=== PATIENT | male | born 1955 | race Caucasian/White ===

== ENCOUNTER 2021-03-31 04:46 | Observation (INO) ==
[2021-03-31] MEDS ORDERED: ONDANSETRON 4 MG/2 ML VIAL IV STA (05:01)
[2021-03-31] MEDS ORDERED: ASPIRIN EC 325 MG TABLET PO STA (05:01)
[2021-03-31] MEDS ORDERED: methylPREDNISolone SOD SUC 125 MG/2 ML VIAL IV STA (05:01)
[2021-03-31] MEDS ORDERED: MORPHINE 2 MG/1 ML SYRINGE IV STA (05:01)
[2021-03-31] MEDS ORDERED: ALBUTEROL/IPRATROPIUM 3 ML NEB RESP TX STA (05:01)
[2021-03-31] MEDS ORDERED: NITROGLYCERIN 2% OINT 1 INCH/GM PACK TOP STA (05:01)
[2021-03-31] MEDS ORDERED: MECLIZINE 25 MG TABLET PO STA (05:01)
[2021-03-31 05:23] LABS: Basophils # 0.1 10*3/uL (0.0-0.2); Basophils % 0.8 % (0.0-0.8); Eosinophils # 0.2 10*3/uL (0.0-0.87); Eosinophils % 3.1 % (0.00-10.9); Hematocrit 39.1 VOL% (42.0-52.0); Immature Granulocytes % 0.5 %; Immature Granulocytes Absolute 0.03 #; Lymphocytes # 0.7 10*3/uL (1.4-4.0); Lymphocytes % 10.2 % (21.2-54.2); Mean Corpuscular HGB Conc 30.7 GM/DL (32-36); Mean Corpuscular Volume 89.3 FL (87-102); Mean Platelet Volume 10.9 FL (9.6-12.0); Monocytes % 10.1 % (1.7-12.7); Neutrophils % 75.3 % (38.7-73.9); Platelet Count 213 T/CUMM (130-400); Red Blood Count 4.38 MC/CUMM (3.8-5.5); Red Cell Distribution Width 15.2 % (9.3-17.3); White Blood Count 6.4 T/CUMM (4-12)
[2021-03-31 05:38] LABS: Alanine Aminotransferase 19 U/L (16-61); Albumin 4.1 G/DL (3.4-5.0); Alkaline Phosphatase 113 U/L (45-117); Aspartate Amino Transferase 23 U/L (0-37); Bilirubin,Total < 0.39 MG/DL (0.20-1.00); Blood Urea Nitrogen 13 MG/DL (7-18); Calcium 9.4 MG/DL (8.5-10.1); Carbon Dioxide 34 MMOL/L (21-32); Estimated Glom Filtration Rate 79 ML/MIN; Glucose 118 MG/DL (74-106); Osmolality,Calculated 270.1 MOS/KG (273-304); Potassium 4.2 MMOL/L (3.5-5.1); Sodium 135 MMOL/L (136-145); Total Protein 7.7 G/DL (6.4-8.2)
[2021-03-31 05:43] LABS: PT Patient Result 10.9 SECS (10.5-12.0)
[2021-03-31] MEDS ORDERED: ENOXAPARIN 100 MG/ML SYRINGE SUBCUT STA (05:50)
[2021-03-31] MEDS ORDERED: ALBUTEROL NEB SOLN 5 MG/ML 20 ML/BOTTLE CONT NEB STA (05:51)
[2021-03-31] MEDS ORDERED: ALBUTEROL 2.5 MG/3 ML NEB RESP TX PRN (05:58)
[2021-03-31] MEDS ORDERED: DEXTROSE 50% 25 GM/50 ML VIAL IV PRN (06:01)
[2021-03-31] MEDS ORDERED: ENOXAPARIN 80 MG/0.8 ML SYRINGE SUBCUT ONE (06:01)
[2021-03-31] MEDS ORDERED: hydrALAZINE 20 MG/1 ML VIAL IV PRN (06:01)
[2021-03-31] MEDS ORDERED: DOCUSATE SODIUM 100 MG CAPSULE PO PRN (06:01)
[2021-03-31] MEDS ORDERED: ACETAMINOPHEN 325 MG TABLET PO PRN (06:01)
[2021-03-31] MEDS ORDERED: ONDANSETRON 4 MG/2 ML VIAL IV PRN (06:01)
[2021-03-31] MEDS ORDERED: GLUCAGON 1 MG VIAL IM PRN (06:01)
[2021-03-31] MEDS ORDERED: SODIUM CHLORIDE 0.9% 1,000 ML IV STA (06:10)
[2021-03-31] MEDS: methylPREDNISolone SOD SUC 40 MG/1 ML VIAL IV SCH ×3 (06:12→21:20)
[2021-03-31 06:14] LABS: Bilirubin,Urine Negative (Negative); Blood, Urine Negative (Negative); Glucose,Urine (UA) Negative (Negative); Ketones,Urine Negative (Negative); Mucus,Urine Occasional /LPF (Occasional); Nitrite,Urine Negative (Negative); Protein,Urine Negative; RBC,Urine 6 /HPF (0-4); Squamous Epithelial Cell,Urine Occasional /HPF (0-10); Urine Appearance CLEAR (Clear); Urine Color Yellow (Yellow); Urine Specific Gravity 1.012 (1.001-1.035); Urine Urobilinogen < 2.0 EU/DL (0.2-1.0)
[2021-03-31] MEDS ORDERED: MECLIZINE 25 MG TABLET PO PRN (06:20)
[2021-03-31 06:25] LABS: Benzodiazepines Screen,Urine Negative (Negative)
[2021-03-31 06:26] LABS: Barbiturates Screen,Urine Negative (Negative); Cannabinoid Screen,Urine Negative (Negative); Phencyclidine Screen,Urine Negative (Negative)
[2021-03-31] MEDS: ALBUTEROL/IPRATROPIUM 3 ML NEB RESP TX SCH ×2 (07:11→20:05)
[2021-03-31] MEDS ORDERED: AZITHROMYCIN INJ 500 MG in SODIUM CHLORIDE 0.9% 250 ML IV SCH (08:00)
[2021-03-31] MEDS ORDERED: INFLUENZA VIRUS VACCINE 0.5 ML SYRINGE IM ONE (08:54)
[2021-03-31] MEDS ORDERED: ENOXAPARIN 40 MG/0.4 ML SYRINGE SUBCUT SCH (09:00)
[2021-03-31] MEDS ORDERED: NICOTINE 21 MG/24 HR PATCH TRANSDERM PRN (10:15)
[2021-03-31] MEDS: BUDESONIDE/FORMOTEROL 80-4.5 INHALER 6.9 GM INH SCH ×2 (12:31→21:20)
[2021-04-01] MEDS: ALBUTEROL/IPRATROPIUM 3 ML NEB RESP TX SCH ×3 (01:05→07:51)
[2021-04-01] MEDS: methylPREDNISolone SOD SUC 40 MG/1 ML VIAL IV SCH (06:21)
[2021-04-01 07:40] VITALS: BP 111/58
[2021-04-01 07:51] LABS: Basophils % 0.2 % (0.0-0.8); Hemoglobin 10.2 GM/DL (14.0-18.0); Immature Granulocytes % 0.7 %; Immature Granulocytes Absolute 0.08 #; Lymphocytes # 0.6 10*3/uL (1.4-4.0); Lymphocytes % 4.7 % (21.2-54.2); Mean Corpuscular HGB Conc 30.9 GM/DL (32-36); Mean Corpuscular Volume 90.4 FL (87-102); Monocytes % 6.8 % (1.7-12.7); Neutrophils % 87.6 % (38.7-73.9); Platelet Count 189 T/CUMM (130-400); Red Blood Count 3.65 MC/CUMM (3.8-5.5); Red Cell Distribution Width 15.4 % (9.3-17.3); White Blood Count 11.9 T/CUMM (4-12)
[2021-04-01 08:04] LABS: Calcium 8.3 MG/DL (8.5-10.1); Potassium 4.4 MMOL/L (3.5-5.1)
[2021-04-01 08:10] LABS: Risk Ratio 4.79; VLDL Cholesterol 34.4 MG/DL
[2021-04-01 08:17] LABS: Band Neutrophils 3 % (0-10); Lymphocytes 5 % (20-55); Platelet Estimate Normal; Segmented Neutrophils 87 % (50-85); Total Cells Counted 100
[2021-04-01] MEDS ORDERED: ENOXAPARIN 40 MG/0.4 ML SYRINGE SUBCUT SCH (09:00)
== END 2021-04-01 10:17 | disposition home or self-care (01) ==
LOC: EDBD → EDUNIT# → N.ED 04:46 → N.EDINP 04:46 → SUATTDRO 05:57 → N.2W 07:13
PROVIDERS: ADMIT Internal Medicine; ATTEND Internal Medicine